=== PATIENT | female | born 2000 | race African-American/Black ===

== ENCOUNTER 2019-08-11 15:36 | Emergency (ER) | payer SELFPAY ==
[~2019-08-11] VITALS: Ht 162.6 cm; Wt 52.3 kg
[2019-08-11 15:47] VITALS: BP 121/75; Ht 162.6 cm; Wt 52.3 kg
== END 2019-08-11 16:58 | disposition home or self-care (01) ==
LOC: D.ER 15:36
DX: S60.032A Contusion of left middle finger without damage to nail, initial encounter (principal); W22.8XXA Striking against or struck by other objects, initial encounter; Y93.9 Activity, unspecified; Y92.9 Unspecified place or not applicable